=== PATIENT | female | born 1950 | race Hispanic/Latino ===

== ENCOUNTER 2019-05-04 06:11 | Day surgery (SDC) | payer MEDICARE ==
[2019-05-03 16:34] VITALS: BP 147/80
[2019-05-03 16:35] LABS: BASOPHILS % (AUTO) 0.5 % (0.0-5.0); EOSINOPHILS % (AUTO) 2.5 % (0.0-8.0); LYMPHOCYTES % (AUTO) 34.2 % (21.0-51.0); MEAN CORPUSCULAR HEMOGLOBIN 28.6 pg (27.0-33.0); MEAN CORPUSCULAR HGB CONC 30.3 g/dL (32.0-36.0); MEAN CORPUSCULAR VOLUME 94.6 fL (79-99); MONOCYTES % (AUTO) 6.2 % (3.0-13.0); NEUTROPHILS % (AUTO) 56.3 % (40.0-77.0); PLATELET COUNT (AUTO) 269 K/uL (130-400); RED BLOOD CELL COUNT(AUTO) 4.23 MIL/uL (4.00-5.50); RED CELL DISTRIBUTION WIDTH 14.4 % (11.0-15.5); WHITE BLOOD COUNT (AUTO) 6.3 K/uL (4.8-10.8)
[2019-05-03 16:50] LABS: CREATININE 0.9 mg/dL (0.5-1.5); POTASSIUM 4.1 mmol/L (3.5-5.1)
[2019-05-04] VITALS (17 sets, daily range): BP systolic 125–168; BP diastolic 52–72
[~2019-05-04] VITALS: Ht 157.5 cm; Wt 74.8 kg
[2019-05-04] MEDS: CEFAZOLIN SODIUM 1 GM VIAL IVP SCH ×2 (06:00→09:00)
[~2019-05-04 06:11] MED LIST: AEC81 PO; CARV6.25 PO; CLOP75TA32 PO; DOCU100T PO; DULO20CA18 PO; EZET10TA48 PO; ICOS1CAP PO; LACTATED RINGERS 1000ML 1,000 ML IV SCH; LINA1TAB5 PO; LOSA100T58 PO; PANT40TA25 PO; PIOG30TA70 PO; ROSU20TA31 PO
[2019-05-04] MEDS ORDERED: SODIUM CHLORIDE 0.9% 1000ML 1,000 ML IV ONE (07:07)
[2019-05-04] MEDS ORDERED: DEXAMETHASONE SOD PHOSPHATE 10MG/ML 1ML VIAL ONE (08:52)
[2019-05-04] MEDS ORDERED: LIDOCAINE PF 2% 5ML ABBOJECT ONE (08:52)
[2019-05-04] MEDS ORDERED: ONDANSETRON HCL 4 MG/2 ML VIAL ONE ×2 (08:53→11:42)
[2019-05-04] MEDS ORDERED: FENTANYL CITRATE PF 50 MCG/1 ML 2ML VIAL ONE (08:53)
[2019-05-04] MEDS ORDERED: MIDAZOLAM HCL 1 MG/ML 2ML VIAL ONE (08:53)
[2019-05-04] MEDS ORDERED: PROPOFOL 10 MG/ML 20ML VIAL IV ONE (08:53)
[2019-05-04] MEDS ORDERED: ROCURONIUM 10MG/1ML SYR 10 MG/ML ML ONE (08:53)
[2019-05-04] MEDS ORDERED: ROPIVACAINE 0.5% 5MG/ML 30ML IJ ONE (10:08)
[2019-05-04] MEDS ORDERED: GLYCOPYRROLATE 1 MG/5 ML SYRINGE ONE (10:11)
[2019-05-04] MEDS ORDERED: NEOSTIGMINE 5MG/5ML SYR IV ONE (10:11)
--- NOTE | 2019-05-04 11:35 | NUR ---
PATIENT ARRIVED TO DAY PATIENT VIA STRETCHER. PATIENT AAO X3, RESPIRATIONS UNLABORED, VITAL SIGNS STABLE. IMMOBILIZER AND MARILIA WRAP TO LEFT LEG, DRESSING DRY AND INTACT. PATIENT C/O NAUSEA, PATIENT GIVEN EMESIS BAG AND WILL ADMINISTER MEDS FOR NAUSEA.
--- NOTE | 2019-05-04 11:45 | NUR ---
ADMINISTERED ZOFRAN IV PUSH FOR NAUSEA. WILL CONTINUE TO MONITOR PATIENT.
--- NOTE | 2019-05-04 12:08 | NUR ---
DISCHARGE INSTRUCTIONS PROVIDED TO PATIENT'S SPOUSE, FOLLOW UP APPOINTMENT AND PRESCRIPTIONS PROVIDED WELL. INSTRUCTED TO KEEP DRESSING DRY/INTACT AND DO NOT REMOVE UNTIL SEEN BY DR RAYMUNDO. ALL QUESTIONS/CONCERNS ADDRESSED.
--- NOTE | 2019-05-04 12:30 | NUR ---
DISCHARGE FROM FACILITY VIA WHEELCHAIR BY NICOLA RUIZ. PATIENT ASSISTED INTO PRIVATE VEHICLE DRIVEN BY SPOUSE.
== END 2019-05-04 12:30 | disposition home or self-care (01) ==
LOC: DAH 06:11
PROVIDERS: ATTEND Orthopaedic Surgery
DX: S82.092A Other fracture of left patella, initial encounter for closed fracture (principal); E11.9 Type 2 diabetes mellitus without complications; I10 Essential (primary) hypertension; E78.5 Hyperlipidemia, unspecified; I25.10 Atherosclerotic heart disease of native coronary artery without angina pectoris; E66.9 Obesity, unspecified; F41.9 Anxiety disorder, unspecified; F32.9 Major depressive disorder, single episode, unspecified; W19.XXXA Unspecified fall, initial encounter; Y93.89 Activity, other specified; Y92.89 Other specified places as the place of occurrence of the external cause; Y99.8 Other external cause status; Z85.3 Personal history of malignant neoplasm of breast; Z98.890 Other specified postprocedural states; Z79.899 Other long term (current) drug therapy; Z79.82 Long term (current) use of aspirin; Z68.30 Body mass index [BMI] 30.0-30.9, adult; Z82.49 Family history of ischemic heart disease and other diseases of the circulatory system; Z83.3 Family history of diabetes mellitus
CPT/HCPCS: 27524; 36415; 64447; 71045; 73560; 80048; 82948 ×2; 85025; 93005; A4215; A4221; A4222; A4223; A4344; A4649 ×2; A4663; A4930; A6223; C1713; J0690; J1100; J2001; J2250; J2405 ×2; J2704; J2710; J2795; J3010; J3490; J7030 ×2

== ENCOUNTER → 2019-05-19 | Outpatient (CLI) | payer MEDICARE ==
[~2019-05-19] MED LIST changes: -LACTATED RINGERS 1000ML 1,000 ML IV SCH
== END | disposition home or self-care (01) ==
LOC: RAH 11:59
PROVIDERS: ATTEND Orthopaedic Surgery
DX: S82.032A Displaced transverse fracture of left patella, initial encounter for closed fracture (principal); M17.12 Unilateral primary osteoarthritis, left knee; M25.462 Effusion, left knee; M21.962 Unspecified acquired deformity of left lower leg; Y93.89 Activity, other specified; Y92.89 Other specified places as the place of occurrence of the external cause; Y99.8 Other external cause status
CPT/HCPCS: 73560

== ENCOUNTER 2021-09-14 11:54 | Emergency (ER) | payer OTHER, MEDICARE ==
[~2021-09-14] VITALS: Ht 152.4 cm; Wt 81.6 kg
[~2021-09-14 11:54] MED LIST changes: -PANT40TA25 PO; +PANT40TA54 PO
[2021-09-14 11:57] VITALS: BP 162/89
[2021-09-14] MEDS ORDERED: ACET-66 PO (14:04)
== END 2021-09-14 14:14 | disposition home or self-care (01) ==
LOC: EDH 11:54
DX: S46.912A Strain of unspecified muscle, fascia and tendon at shoulder and upper arm level, left arm, initial encounter (principal); S50.02XA Contusion of left elbow, initial encounter; E11.9 Type 2 diabetes mellitus without complications; E78.00 Pure hypercholesterolemia, unspecified; I10 Essential (primary) hypertension; Z79.82 Long term (current) use of aspirin; Z79.84 Long term (current) use of oral hypoglycemic drugs; Z79.899 Other long term (current) drug therapy; Z85.3 Personal history of malignant neoplasm of breast; W18.39XA Other fall on same level, initial encounter; Y93.89 Activity, other specified; Y92.89 Other specified places as the place of occurrence of the external cause; Y99.8 Other external cause status
CPT/HCPCS: 73030; 73070; 73502